=== PATIENT | male | born 1945 | race Caucasian/White ===

== ENCOUNTER 2020-08-28 01:36 | Inpatient (IN) | payer MEDICARE, OTHER ==
[2020-08-28 02:27] LABS: ABSOLUTE LYMPHOCYTES (AUTO) 0.9 10^3/uL (0.5-4.7); ABSOLUTE NEUT (AUTO) 11.3 10^3/uL (1.7-8.2); BASOPHILS % (AUTO) 0.2 % (0-2); HEMATOCRIT 38.3 % (37.9-51.0); HEMOGLOBIN 13.3 g/dL (13.5-17.0); LYMPHOCYTES % (AUTO) 6.8 % (13-45); MEAN CORPUSCULAR HEMOGLOBIN 33.3 pg (27.0-33.4); MEAN CORPUSCULAR HGB CONC 34.8 g/dL (32.0-36.0); MEAN CORPUSCULAR VOLUME 96 fl (80-97); MONOCYTES % (AUTO) 7.7 % (3-13); PLATELET COUNT 105 10^3/uL (150-450); RED CELL DISTRIBUTION WIDTH 14.3 % (11.5-14.0); SEGMENTED NEUTROPHILS % (AUTO) 85.3 % (42-78); TOTAL CELLS COUNTED % (AUTO) 100 %; WHITE BLOOD COUNT 13.3 10^3/uL (4.0-10.5)
[2020-08-28 02:47] LABS: ALBUMIN 3.5 g/dL (3.5-5.0); ALKALINE PHOSPHATASE 52 U/L (38-126); ANION GAP 12 (5-19); ASPARTATE AMINO TRANSFERASE 17 U/L (17-59); BILIRUBIN,DIRECT 0.1 mg/dL (0.0-0.4); BILIRUBIN,TOTAL 1.4 mg/dL (0.2-1.3); BLOOD UREA NITROGEN 35 mg/dL (7-20); CALCIUM 8.7 mg/dL (8.4-10.2); CARBON DIOXIDE 21 mmol/L (22-30); CHLORIDE 103 mmol/L (98-107); CREATINE KINASE 59 U/L (55-170); GLUCOSE 133 mg/dL (75-110); POTASSIUM 4.5 mmol/L (3.6-5.0); TOTAL PROTEIN 6.1 g/dL (6.3-8.2)
[2020-08-28 02:59] LABS: CREATINE KINASE MB 0.43 ng/mL (<4.55); NT PRO BNP 3630 pg/mL (<125)
[2020-08-28 03:02] LABS: TROPONIN I < 0.012 ng/mL
--- NOTE | 2020-08-28 03:46 | RADIOLOGY REPORT (SQ) ---
EXAM DESCRIPTION: XR CHEST 1 VIEW COMPLETED DATE/TME: 08/28/2020 01:56 CLINICAL HISTORY: 75 years Male, dyspnea COMPARISON: None. NUMBER OF VIEWS/TECHNIQUE: 1/AP FINDINGS: Adequate lung volume, moderate hazy opacity at the lower chest right cardiophrenic margin. mildly enlarged cardiac silhouette, and intact bony thorax. IMPRESSION: 1. Moderate hazy opacity of the right lower hemithorax/right cardiophrenic angle may indicate pneumonia/atelectasis, effusion, and/or cardiophrenic fat. Recommend CR/CT surveillance including at 7-12 weeks following initiation of any clinically warranted therapy. 2. Mild cardiac enlargement.
[2020-08-28] MEDS ORDERED: LEVOFLOXACIN 750 MG/D5W RTU 750 MG/150 ML RTUPB IV ONE (03:51)
[2020-08-28] MEDS ORDERED: NORMAL SALINE 1000 ML 1,000 ML IV ONE (03:54)
[2020-08-28] MEDS ORDERED: NORMAL SALINE IV ONE (03:57)
--- NOTE | 2020-08-28 03:58 | ER Document Report ---
ED General - General Stated Complaint: SHORTNESS OF BREATH Time Seen by Provider: 08/28/20 03:32 Primary Care Provider: MARIA E IBARRA JR, MD [Primary Care Provider] - Follow up as needed - HPI Context: This is a 75-year-old male with no history of prior visits to this emergency department presenting with a complaint of occasional shortness of breath, generalized weakness, and hematuria. Patient states he has felt unwell in gener al for the past 2 weeks. Patient states that his weakness seems to worsen today and he finally decided to be evaluated in the emergency department. Patient states he feels short of breath "sometimes" but does not seem to be able to elaborate as to whether or not it is associated with exertion, supine position, at rest, etc. Patient denies chest pain. Patient states that he has noticed that his urine is darker in color and that he is noticed some blood clots when he urinates. Patient states he also has some generalized weakness and fatigue. Patient denies for your pain: Take ibuprofen 600 mg and acetaminophen 1000 mg every 6 hours together as needed for pain. If this does not control your pain you may take 15 mg of oral morphine every 4 hours as needed. Please be very careful about using the oral morphine and only use this for severe pain.. Patient denies history of COVID-19 infection, no exposure to COVID-19 positive persons, known exposure to persons under investigation for Covid 19. Patient states that he is sleeping more than usual and that seems to help with his fatigue for short time. Patient states that any type of activity seems to exacerbate his fatigue. Associated symptoms: Other - See HPI - Related Data Allergies/Adverse Reactions: No Known Allergies Allergy (Unverified 08/28/20 04:22) Home Medications: Metoprolol. Lisinopril. Glipizide. Amlodipine. Aspirin. Hydrochlorothiazide Past Medical History - General Information source: Patient - Social History Smoking Status: Former Smoker Frequency of alcohol use: None Drug Abuse: None Family History: Reviewed & Not Pertinent - Past Medical History Cardiac Medical History: Reports: Hx Hypertension Pulmonary Medical History: Reports: Hx COPD Endocrine Medical History: Reports: Hx Diabetes Mellitus Type 2 Review of Systems - Review of Systems Constitutional: See HPI, Weakness EENT: No symptoms reported Cardiovascular: No symptoms reported Respiratory: Short of breath Gastrointestinal: No symptoms reported Genitourinary: Hematuria Male Genitourinary: No symptoms reported Musculoskeletal: No symptoms reported Skin: No symptoms reported Hematologic/Lymphatic: No symptoms reported Neurological/Psychological: Weakness -: Yes All other systems reviewed and negative Physical Exam - Vital signs Vitals: Resp Pulse Ox 21 H 94 08/28/20 01:38 08/28/20 01:38 - Notes Notes: CONSTITUTIONAL [Vital signs reviewed, Patient appears fatigued and pale, Alert and oriented X 3, patient does not appear to be in any acute distress.] HEAD [Atraumatic, Normocephalic.] EYES [Eyes are normal to inspection, No discharge from eyes, Extraocular muscles intact, Sclera are normal, Conjunctiva are normal.] ENT [External ears normal to inspection, Nose examination normal, Posterior pharynx normal, Mouth normal to inspection.] NECK [Normal ROM, No jugular venous distention, No meningeal signs, no carotid bruit.] RESPIRATORY CHEST [Chest is nontender, Breath sounds normal, No respiratory distress.] CARDIOVASCULAR [Irregular rhythm, No murmurs, Normal S1 S2, No rub, No gallop.] ABDOMEN [Abdomen is nontender, No pulsatile masses, No other masses, Bowel sounds normal, No distension, No peritoneal signs, No hernias.] BACK [There is no CVA Tenderness, There is no tenderness to palpation, Normal inspection.] UPPER EXTREMITY [Inspection normal, No cyanosis, No clubbing, No edema, ] LOWER EXTREMITY [Inspection normal, No cyanosis, No clubbing, No edema, NEURO [No focal motor deficits, No focal sensory deficits, Speech normal.] SKIN [Skin is warm, Skin is dry, Skin appears pale.] PSYCHIATRIC [Normal affect. ] Course - Re-evaluation Re-evalutation: 08/28/20 05:55 Results of ED MSE discussed with patient. Recommendation for admission discussed with patient. Patient is agreeable to this. All questions were answered. - Vital Signs Vital signs: Temp Pulse Resp BP Pulse Ox 99 F 94 18 103/54 L 97 08/28/20 05:00 08/28/20 02:02 08/28/20 05:09 08/28/20 05:09 08/28/20 05:09 - Laboratory Result Diagrams: 08/28/20 01:44 08/28/20 01:44 Laboratory results interpreted by me: 08/28/20 08/28/20 08/28/20 01:44 01:44 01:44 WBC 13.3 H RBC 4.00 L Hgb 13.3 L RDW 14.3 H Plt Count 105 L Lymph % (Auto) 6.8 L Absolute Neuts (auto) 11.3 H Seg Neutrophils % 85.3 H VBG HCO3 Sodium 135.9 L Carbon Dioxide 21 L BUN 35 H Creatinine 1.91 H Est GFR ( Amer) 42 L Est GFR (MDRD) Non-Af 35 L Glucose 133 H Total Bilirubin 1.4 H NT-Pro-B Natriuret Pep 3630 H Total Protein 6.1 L Urine Protein Urine Blood Urine Nitrite Ur Leukocyte Esterase 08/28/20 08/28/20 03:43 04:00 WBC RBC Hgb RDW Plt Count Lymph % (Auto) Absolute Neuts (auto) Seg Neutrophils % VBG HCO3 19.9 L Sodium Carbon Dioxide BUN Creatinine Est GFR ( Amer) Est GFR (MDRD) Non-Af Glucose Total Bilirubin NT-Pro-B Natriuret Pep Total Protein Urine Protein 100 H Urine Blood LARGE H Urine Nitrite POSITIVE H Ur Leukocyte Esterase LARGE H - Diagnostic Test Radiology reviewed: Reports reviewed - EKG Interpretation by Me Additional EKG results interpreted by me: 08/28/20 05:55 EKG obtained on 08/28/2020 at 0221 hrs. was interpreted by this MD. Findings: Irregularly irregular rhythm, appearance of which is consistent with atrial fibrillation, rate 95, left axis deviation is present, P waves are not visible, QRS complexes appear narrow, QTC is 448, there are no obvious patterns of ST segment elevation, depression, or reciprocal change present to suggest acute myocardial ischemia or infarction. There is no prior EKG available for comparison. Impression: Rate controlled atrial fibrillation with nonspecific ST segments. - Consults Dr. López Time consulted: 05:21 Reason for consultation: 08/28/20 05:58 UTI, hypotension, leukocytosis, dehydration, renal insufficiency Consulted provider: will come to ER Critical Care Note - Critical Care Note Total time excluding time spent on procedures (mins): 90 - Management of systemic infection with hypotension Discharge - Discharge Clinical Impression: SIRS (systemic inflammatory response syndrome) UTI (urinary tract infection) Qualifiers: Urinary tract infection type: site unspecified Hematuria presence: with hematuria Qualified Code(s): N39.0 - Urinary tract infection, site not specified Hypotension Qualifiers: Hypotension type: unspecified hypotension type Qualified Code(s): I95.9 - Hypotension, unspecified Condition: Stable Disposition: ADMITTED INPATIENT Admitting Provider: HospitalistDr. López Unit Admitted: IMCU Referrals: MARIA E IBARRA JR, MD [Primary Care Provider] - Follow up as needed
[2020-08-28 04:20] LABS: INTERNATIONAL RATION (INR) 1.14; PROTHROMBIN TIME 14.8 SEC (11.4-15.4)
[2020-08-28 04:25] LABS: APPEARANCE,URINE CLOUDY; BILIRUBIN,URINE NEGATIVE (NEGATIVE); COLOR,URINE AMBER; GLUCOSE, URINE NEGATIVE (NEGATIVE); KETONES,URINE NEGATIVE (NEGATIVE); LEUKOCYTE ESTERASE,URINE LARGE (NEGATIVE); NITRITE,URINE POSITIVE (NEGATIVE); PROTEIN,URINE 100 mg/dL (NEGATIVE); URINE SPECIFIC GRAVITY 1.014; UROBILINOGEN,URINE NEGATIVE mg/dL (<2.0)
[2020-08-28 04:26] LABS: VENOUS BLOOD BASE EXCESS -4.7 mmol/L; VENOUS BLOOD HCO3 19.9 mmol/L (20-32); VENOUS BLOOD PCO2 35.4 mmHg (35-63); VENOUS BLOOD PH 7.37 (7.30-7.42)
[2020-08-28] MEDS ORDERED: ONDANSETRON HCL INJ/PF 4 MG/2 ML SDV IV PRN (05:59)
[2020-08-28] MEDS ORDERED: ACETAMINOPHEN 325 MG TABLET PO PRN (05:59)
[2020-08-28] MEDS ORDERED: DEXTROSE 50%-WATER 25 GM/50 ML DISP.SYRIN IV PRN ×2 (06:12)
[2020-08-28] MEDS ORDERED: GLUCAGON,HUMAN RECOMB 1 MG INJ IM PRN (06:12)
[2020-08-28] MEDS ORDERED: DEXTROSE 40% GEL 15 GM TUBE PO PRN ×2 (06:12)
--- NOTE | 2020-08-28 06:25 | PDOC H&P ---
History of Present Illness Admission Date/PCP: MARIA E IBARRA JR, MD Patient complains of: Generalized weakness, blood in urine History of Present Illness: MANUEL QUINN is a 75 year old male with a history of hypertension and diabetes who presents to the ER stating that he has been feeling bad for the past 1 week. He states that he has been having generalized weakness, and has been easily fatigued. He also reports that he has been having hematuria, increased fr equency of urination and dysuria. And also endorses shortness of breath with exertion and mild sporadic cough which is nonproductive. He has been having rhinorrhea but denies history of fever, chills, chest pain, dizziness, nausea, vomiting or diarrhea. Has no orthopnea, PND or leg swelling. He also denied any recent sick contact history. Past Medical History Cardiac Medical History: Reports: Hypertension Pulmonary Medical History: Reports: Chronic Obstructive Pulmonary Disease (COPD) Endocrine Medical History: Reports: Diabetes Mellitus Type 2 Social History Information Source: Patient Lives with: Family Smoking Status: Former Smoker Frequency of Alcohol Use: None - Advance Directive Resuscitation Status: Full Code Family History Family History: Reviewed & Not Pertinent Parental Family History Reviewed: Yes Children Family History Reviewed: Yes Sibling(s) Family History Reviewed.: Yes Medication/Allergy Home Medications: Amlodipine Besylate [Norvasc 5 mg Tablet] 5 mg PO DAILY 08/28/20 Fluticasone Propionate [Flonase Nasal [place] 50 Mcg/[place]accoon 16 gm] 2 spray NAREB DAILYP PRN 08/28/20 Glipizide [Glocotrol 5 Mg Tablet] 5 mg PO BID 08/28/20 Hydrochlorothiazide [Hydrodiuril 12.5 mg Tablet] 12.5 mg PO QAM 08/28/20 Lisinopril [Prinivil 5 mg Tablet] 5 mg PO DAILY 08/28/20 Pioglitazone HCl 45 mg PO DAILY 08/28/20 Allergies/Adverse Reactions: No Known Allergies Allergy (Unverified 08/28/20 04:22) Review of Systems Constitutional: PRESENT: as per HPI Eyes: ABSENT: visual disturbances Ears: ABSENT: hearing changes Nose, Mouth, and Throat: ABSENT: as per HPI, headache(s), mouth pain, sore throat, vertigo, other Cardiovascular: PRESENT: as per HPI Respiratory: PRESENT: as per HPI Gastrointestinal: ABSENT: abdominal pain, constipation, diarrhea, hematemesis, hematochezia, nausea, vomiting Genitourinary: PRESENT: as per HPI Musculoskeletal: ABSENT: joint swelling Integumentary: ABSENT: rash, wounds Neurological: ABSENT: abnormal gait, abnormal speech, confusion, dizziness, focal weakness, syncope Psychiatric: ABSENT: anxiety, depression, homidical ideation, suicidal ideation Endocrine: ABSENT: cold intolerance, heat intolerance, polydipsia, polyuria Hematologic/Lymphatic: ABSENT: easy bleeding, easy bruising Physical Exam Vital Signs: Temp Pulse Resp BP Pulse Ox 99 F 94 31 H 109/56 L 91 L 08/28/20 05:00 08/28/20 02:02 08/28/20 06:01 08/28/20 06:00 08/28/20 06:01 Intake & Output 08/26/20 08/27/20 08/28/20 06:59 06:59 06:59 Intake Total 1150 Balance 1150 Weight 83.461 kg Additional comments: GENERAL APPEARANCE: Alert and oriented x3, no acute distress, on intranasal oxygen HEENT: Normocephalic and atraumatic. No scleral icterus. Dry oral mucosa NECK: Supple. No lymphadenopathy or tenderness. No carotid bruit. No JVD CHEST: Symmetric. Nontender to palpation. LUNGS: Good air entry bilaterally. No wheezing or crackles appreciated HEART: Regular rate and rhythm with normal S1 and S2. No murmurs, gallops, or rubs. ABDOMEN: Flat, soft, active bowel sounds, no direct or rebound tenderness. No organomegaly detected. No CVA tenderness EXTREMITIES: No cyanosis, clubbing, or edema. MUSCULOSKELETAL: No deformity, atrophy or swelling noted PSYCHIATRIC: Recent and remote memory is intact. Appropriate mood and affect. SKIN: Warm, dry, and well perfused. No lesions or rashes are noted. NEUROLOGIC: No focal sensory or motor deficits are noted. Results Laboratory Results: 08/28/20 01:44 08/28/20 01:44 08/28/20 08/28/20 08/28/20 01:44 01:44 03:43 WBC 13.3 H RBC 4.00 L Hgb 13.3 L Hct 38.3 MCV 96 MCH 33.3 MCHC 34.8 RDW 14.3 H Plt Count 105 L Seg Neutrophils % 85.3 H VBG pH VBG pCO2 VBG HCO3 VBG Base Excess Sodium 135.9 L Potassium 4.5 Chloride 103 Carbon Dioxide 21 L Anion Gap 12 BUN 35 H Creatinine 1.91 H Est GFR ( Amer) 42 L Glucose 133 H Lactic Acid Calcium 8.7 Total Bilirubin 1.4 H AST 17 Alkaline Phosphatase 52 Total Protein 6.1 L Albumin 3.5 Urine Color [place] Urine Appearance CLOUDY Urine pH 5.0 Ur Specific [place] 1.014 Urine Protein 100 H Urine Glucose (UA) NEGATIVE Urine Ketones NEGATIVE Urine Blood LARGE H Urine Nitrite POSITIVE H Ur Leukocyte Esterase LARGE H Urine WBC (Auto) >182 Urine RBC (Auto) >182 08/28/20 08/28/20 04:00 04:00 WBC RBC Hgb Hct MCV MCH MCHC RDW Plt Count Seg Neutrophils % VBG pH 7.37 VBG pCO2 35.4 VBG HCO3 19.9 L VBG Base Excess -4.7 Sodium Potassium Chloride Carbon Dioxide Anion Gap BUN Creatinine Est GFR ( Amer) Glucose Lactic Acid 1.2 Calcium Total Bilirubin AST Alkaline Phosphatase Total Protein Albumin Urine Color Urine Appearance Urine pH Ur Specific [place] Urine Protein Urine Glucose (UA) Urine Ketones Urine Blood Urine Nitrite Ur Leukocyte Esterase Urine WBC (Auto) Urine RBC (Auto) 08/28/20 08/28/20 01:44 01:44 Creatine Kinase 59 CK-MB (CK-2) 0.43 Troponin I < 0.012 NT-Pro-B Natriuret Pep 3630 H Impressions: Chest X-Ray 08/28/20 01:56 IMPRESSION: 1. Moderate hazy opacity of the right lower hemithorax/right cardiophrenic angle may indicate pneumonia/atelectasis, effusion, and/or cardiophrenic fat. Recommend CR/CT surveillance including at 7-12 weeks following initiation of any clinically warranted therapy. 2. Mild cardiac enlargement. Assessment and Plan - Diagnosis (1) Sepsis Is this a current diagnosis for this admission?: Yes Plan: Patient meets sepsis criteria Likely source: UTI Has been given 2 L of normal saline ER Continue hydration continue Levaquin Follow-up with blood and urine culture (2) Acute respiratory failure with hypoxia Is this a current diagnosis for this admission?: Yes Plan: Patient reports shortness of breath for the past 3 to 4 days with exertion Has no known history of COPD or heart failure Oxygen saturation was around 86% on arrival Currently saturating well on 2 L intranasal oxygen Chest x-ray shows moderate hazy opacity on the right lower lobe Screened for Covid at the ED Continue Levaquin Continue supportive care and monitor vitals closely (3) Right lower lobe pneumonia Is this a current diagnosis for this admission?: Yes Plan: Patient has been having dry cough and shortness of breath Chest x-ray shows right lower lobe hazy opacity likely pneumonia vs atelectasis Continue IV Levaquin Closely monitor vitals Follow-up with blood culture (4) Acute kidney injury Is this a current diagnosis for this admission?: Yes Plan: BUN/creatinine was 35/1.9 No baseline to compare with Likely prerenal from poor oral intake Has been hydrated with 2 L at the ER Continue IV hydration Monitor renal indicis Renally dose medications (5) Suspected COVID-19 virus infection Is this a current diagnosis for this admission?: Yes Plan: Presents with symptoms suspicious for COVID-19 Follow-up with test results Under special airborne isolation Continue supportive measures (6) UTI (urinary tract infection) Qualifiers: Urinary tract infection type: site unspecified Hematuria presence: with hematuria Qualified Code(s): N39.0 - Urinary tract infection, site not specified; R31.9 - Hematuria, unspecified Is this a current diagnosis for this admission?: Yes Plan: UA suggestive of UTI Continue Levaquin Follow-up with urine culture (7) Diabetes mellitus Qualifiers: Diabetes mellitus type: type 2 Is this a current diagnosis for this admission?: Yes Plan: Patient takes glipizide at home Started him on sliding scale insulin with Accu-Chek and hypoglycemia protocol (8) Hypertension Is this a current diagnosis for this admission?: Yes Plan: Patient currently on multiple antihypertensive medications including amlodipine, lisinopril, hydrochlorothiazide and metoprolol Likely contributing to low blood pressure present on presentation We will hold antihypertensive medication for now - Time Time Spent with patient: 35 or more minutes Total Critical Time (Minutes): 45 Medications reviewed and adjusted accordingly: Yes Anticipated Discharge Disposition: Home, Self Care Anticipated Discharge Timeframe: within 72 hours - Inpatient Certification Based on my medical assessment, after consideration of the patient's comorbidities, presenting symptoms, or acuity I expect that the services needed warrant INPATIENT care.: Yes I certify that my determination is in accordance with my understanding of Medicare's requirements for reasonable and necessary INPATIENT services [42 CFR 412.3e].: Yes Medical Necessity: Significant Comorbidiites Make Outpatient Treatment Too Risky, Need Close Monitoring Due to Risk of Patient Decompensation, Need for IV Antibiotics, Risk of Complication if Not Cared For in Hospital Post Hospital Care: D/C or Transfer Summary
[2020-08-28] MEDS: HEPARIN SOD (PORCINE) 5,000 UNIT/ML 1 ML VIAL SUBCUT SCH ×3 (06:45→22:05)
--- NOTE | 2020-08-28 07:51 | EKG REPORT ---
SEVERITY:- ABNORMAL ECG - ATRIAL FIBRILLATION, V-RATE 78-115 LEFT AXIS DEVIATION NONSPECIFIC T ABNORMALITIES, INFERIOR LEADS : Confirmed by: Rip Waldron 28-Aug-2020 07:50:35
[2020-08-28] MEDS: INSULIN REG, HUMAN 100 UNIT/ML 3 ML VIAL (PYX) SUBCUT SCH ×4 (09:39→22:06)
[2020-08-28] MEDS: FAMOTIDINE 20 MG TABLET PO SCH ×2 (09:42→22:05)
[2020-08-28] MEDS: NORMAL SALINE 1000 ML 1,000 ML IV PRN (14:10)
--- NOTE | 2020-08-28 15:38 | Progress Note ---
Provider Note Provider Note: The patient is a 75-year-old male with a past medical history of hypertension, COPD (not home O2 dependent, and DM 2 who was admitted early this morning by the rn recruitment for Sepsis secondary to right lower lobe pneumonia and urinary tract infection. The patient was briefly seen on morning rounds. He is found resting in bed, comfortably, on supplemental oxygen via nasal cannula. He was sleeping but woke easily when I said his name. He complains of continued generalized malaise and fatigue. Patient did have a fever of 100.4 this am. Vital signs, nursing notes, laboratory results, imaging, H&P, and orders as established by the previous provider. In addition: Have resumed the patient's home medications with the exception of his oral anti- diabetic agents. Have ordered follow-up CT Chest imagining as was recommended by the radiologist. Encouraged pulmonary toilet with IS, Flutter valve, and OOB activities. Discussed patient's likely HH needs with discharge planning.
--- NOTE | 2020-08-28 18:55 | RADIOLOGY REPORT (SQ) ---
EXAM DESCRIPTION: CT CHEST WITHOUT IMAGES COMPLETED DATE/TIME: 08/28/2020 6:36 pm REASON FOR STUDY: fever, Dsypnea, hypoxia COMPARISON: None. TECHNIQUE: CT scan performed of the chest without intravenous contrast. Images reviewed with lung, soft tissue and bone windows. Reconstructed coronal and sagittal MPR images reviewed. All images st ored on PACS. All CT scanners at this facility use dose modulation, iterative reconstruction, and/or weight based d osing when appropriate to reduce radiation dose to as low as reasonably achievable (ALARA). [facility]: Dose Right [facility]: CareDose [facility]: Dose Right [facility]: Teradose 4D [facility]: [employer] RADIATION DOSE: CT Rad equipment meets quality standard of care and radiation dose reduction techniq ues were employed. CTDIvol: 14.2 mGy. DLP: 581 mGy-cm. mGy. LIMITATIONS: No technical limitations. FINDINGS: LUNGS AND PLEURA: There are some small apical blebs on the right. There is no pulmonary i nfiltrate or pleural effusion. No mass. HILAR AND MEDIASTINAL STRUCTURES: No identified masses or abnormal nodes. No obvious aneurysm. HEART AND VASCULAR STRUCTURES: No aneurysm. No pericardial effusion. Coronary artery calcifications are present. UPPER ABDOMEN: 27.6 mm right adrenal mass. THYROID AND OTHER SOFT TISSUES: No masses. No adenopathy. BONES: No significant finding. HARDWARE: None in the chest. OTHER: No other significant findings. IMPRESSION: 1. Mild emphysematous changes on the right. No acute cardiopulmonary findings. 2. 27.6 mm right adrenal mass. Consider MRI with adrenal protocol. TECHNICAL DOCUMENTATION: JOB ID: [id number] Quality ID # [id number]: Final reports with documentation of one or more dose reduction techniques (e.g., Au tomated exposure control, adjustment of the mA and/or kV according to patient size, use of iterative reconstruction technique) 2010 [employer]- All Rights Reserved Reading location - IP/workstation name: [email or web address]
[2020-08-29 05:55] LABS: ABSOLUTE LYMPHOCYTES (AUTO) 1.3 10^3/uL (0.5-4.7); ABSOLUTE MONOCYTES (AUTO) 1.1 10^3/uL (0.1-1.4); ABSOLUTE NEUT (AUTO) 9.6 10^3/uL (1.7-8.2); BASOPHILS % (AUTO) 0.2 % (0-2); EOSINOPHILS % (AUTO) 0.1 % (0-6); HEMATOCRIT 35.9 % (37.9-51.0); HEMOGLOBIN 12.3 g/dL (13.5-17.0); LYMPHOCYTES % (AUTO) 11.1 % (13-45); MEAN CORPUSCULAR HEMOGLOBIN 33.3 pg (27.0-33.4); MEAN CORPUSCULAR HGB CONC 34.4 g/dL (32.0-36.0); MEAN CORPUSCULAR VOLUME 97 fl (80-97); MONOCYTES % (AUTO) 8.9 % (3-13); RED BLOOD COUNT 3.71 10^6/uL (4.35-5.55); RED CELL DISTRIBUTION WIDTH 14.4 % (11.5-14.0); SEGMENTED NEUTROPHILS % (AUTO) 79.7 % (42-78); TOTAL CELLS COUNTED % (AUTO) 100 %; WHITE BLOOD COUNT 12.1 10^3/uL (4.0-10.5)
[2020-08-29 05:58] LABS: ANION GAP 9 (5-19); BLOOD UREA NITROGEN 13 mg/dL (7-20); CALCIUM 8.5 mg/dL (8.4-10.2); CARBON DIOXIDE 28 mmol/L (22-30); CHLORIDE 103 mmol/L (98-107); GLUCOSE 106 mg/dL (75-110)
[2020-08-29 05:59] LABS: PLATELET COUNT 72 10^3/uL (150-450)
[2020-08-29] MEDS: HEPARIN SOD (PORCINE) 5,000 UNIT/ML 1 ML VIAL SUBCUT SCH (06:46)
[2020-08-29] MEDS: NORMAL SALINE 1000 ML 1,000 ML IV PRN (06:47)
[2020-08-29] MEDS ORDERED: HYDROCHLOROTHIAZIDE 12.5 MG TABLET PO SCH (08:00)
[2020-08-29] MEDS ORDERED: DEXTROSE 50%-WATER 25 GM/50 ML DISP.SYRIN IV PRN ×2 (08:32)
[2020-08-29] MEDS ORDERED: DEXTROSE 40% GEL 15 GM TUBE PO PRN ×2 (08:32)
[2020-08-29] MEDS ORDERED: GLUCAGON,HUMAN RECOMB 1 MG INJ IM PRN (08:32)
[2020-08-29] MEDS ORDERED: DEXTROSE 50%-WATER 25 GM/50 ML DISP.SYRIN IV ONE (08:38)
[2020-08-29] MEDS: LISINOPRIL 5 MG TABLET PO SCH (09:22)
[2020-08-29] MEDS: FAMOTIDINE 20 MG TABLET PO SCH ×2 (09:23→21:45)
[2020-08-29] MEDS: AMLODIPINE BESYLATE 5 MG TABLET PO SCH (09:23)
[2020-08-29] MEDS: FLUTICASONE NASAL SPRAY 50 MCG/SPRY 120 SPRAY/16 GM NAREB SCH (09:23)
[2020-08-29] MEDS: DEXTROSE 5%-NORMAL SALINE 1,000 ML IV PRN (10:43)
[2020-08-29 11:01] LABS: APPEARANCE,URINE CLEAR; BILIRUBIN,URINE NEGATIVE (NEGATIVE); COLOR,URINE YELLOW; GLUCOSE, URINE >=500 mg/dL (NEGATIVE); KETONES,URINE NEGATIVE (NEGATIVE); PROTEIN,URINE NEGATIVE (NEGATIVE); URINE SPECIFIC GRAVITY 1.012; UROBILINOGEN,URINE NEGATIVE mg/dL (<2.0)
[2020-08-29] MEDS: INSULIN LISPRO 100 UNIT/ML 3 ML VIAL SUBCUT SCH ×2 (12:20→17:04)
[2020-08-29] MEDS: INSULIN REG, HUMAN 100 UNIT/ML 3 ML VIAL (PYX) SUBCUT SCH (13:03)
--- NOTE | 2020-08-29 13:59 | PDOC PROGRESS REPORT ---
Subjective Date:: 08/29/20 Subjective:: As per admitting physician's note MANUEL QUINN is a 75 year old male with a history of hypertension and diabetes who presents to the ER stating that he has been feeling bad for the past 1 week. He states that he has been having generalized weakness, and has been easily fatigued. He also reports that he has been having hematuria, increased frequency of urination and dysuria. And also endorses shortness of breath with exertion and mild sporadic cough which is nonproductive. He has been having rhinorrhea but denies history of fever, chills, chest pain, dizziness, nausea, vomiting or diarrhea. Has no orthopnea, PND or leg swelling. He also denied any recent sick contact history. 08/29/2020. No acute events overnight. Patient is stating that prior to admission he was noting blood clots in his urine which has resolved since admission, denies any dysuria, urgency or hesitancy. Denies any fever, chills, nausea, vomiting. Reason For Visit: SEPSIS,URINARY TRACT INFECTION Physical Exam Vital Signs: Temp Pulse Resp BP Pulse Ox 98.0 F 83 18 94/40 L 99 08/29/20 11:05 08/29/20 11:05 08/29/20 11:05 08/29/20 11:05 08/29/20 11:05 Intake & Output 08/28/20 08/29/20 08/30/20 06:59 06:59 06:59 Intake Total 1150 1575 590 Output Total 1225 Balance 1150 350 590 Weight 83.461 kg 87.4 kg General appearance: PRESENT: no acute distress, obese, well-developed, well- nourished Head exam: PRESENT: atraumatic, normocephalic Respiratory exam: PRESENT: clear to auscultation kehinde. ABSENT: rales, rhonchi, wheezes Cardiovascular exam: PRESENT: RRR. ABSENT: diastolic murmur, rubs, systolic murmur GI/Abdominal exam: PRESENT: normal bowel sounds, soft. ABSENT: distended, guarding, mass, organolmegaly, rebound, tenderness Neurological exam: PRESENT: alert, awake, oriented to person, oriented to place, oriented to time, oriented to situation, CN II-XII grossly intact. ABSENT: motor sensory deficit Skin exam: PRESENT: dry, intact, warm. ABSENT: cyanosis, rash Results Laboratory Results: 08/29/20 04:57 08/29/20 04:57 08/29/20 08/29/20 08/29/20 04:57 04:57 10:26 WBC 12.1 H RBC 3.71 L Hgb 12.3 L Hct 35.9 L MCV 97 MCH 33.3 MCHC 34.4 RDW 14.4 H Plt Count 72 L Seg Neutrophils % 79.7 H Sodium 139.6 Potassium 4.0 Chloride 103 Carbon Dioxide 28 Anion Gap 9 BUN 13 Creatinine 1.07 Est GFR ( Amer) > 60 Glucose 106 Calcium 8.5 Urine Color YELLOW Urine Appearance CLEAR Urine pH 5.0 Ur Specific [place] 1.012 Urine Protein NEGATIVE Urine Glucose (UA) >=500 H Urine Ketones NEGATIVE Urine Blood SMALL H Urine RBC (Auto) 2 08/28/20 08/28/20 01:44 01:44 Creatine Kinase 59 CK-MB (CK-2) 0.43 Troponin I < 0.012 NT-Pro-B Natriuret Pep 3630 H Impressions: Chest CT 08/28/20 00:00 IMPRESSION: 1. Mild emphysematous changes on the right. No acute cardiopulmonary findings. 2. 27.6 mm right adrenal mass. Consider MRI with adrenal protocol. Chest X-Ray 08/28/20 01:56 IMPRESSION: 1. Moderate hazy opacity of the right lower hemithorax/right cardiophrenic angle may indicate pneumonia/atelectasis, effusion, and/or cardiophrenic fat. Recommend CR/CT surveillance including at 7-12 weeks following initiation of any clinically warranted therapy. 2. Mild cardiac enlargement. Assessment and Plan - Diagnosis (1) Acute respiratory failure with hypoxia Is this a current diagnosis for this admission?: Yes Plan: Much improved. SPO2 WNL on 1 L nasal cannula. Patient presented with dyspnea on exertion 3 to 4 days at admission. Likely community-acquired pneumonia including Streptococcus pneumonia. Denies any history of known history of COPD or heart failure Chest x-ray shows moderate hazy opacity on the right lower lobe COVID-19 serology negative. Day 2 IV antibiotics. Day 2 IV levofloxacin. Continue empiric IV antibiotics, DuoNeb, as needed BiPAP, supplemental oxygen, follow-up sputum and blood culture. (2) Acute kidney injury Is this a current diagnosis for this admission?: Yes Plan: Resolved. Presented with BUN/creatinine was 35/1.9 Likely prerenal from poor oral intake Continue cautious volume resuscitation guided by volume status. Monitor electrolytes and volume status, replace electrolytes as needed. Avoid nephrotoxic meds. (3) Diabetes mellitus Qualifiers: Diabetes mellitus type: type 2 Is this a current diagnosis for this admission?: Yes Plan: Patient noted to be hypoglycemic. Home medications are pioglitazone and glipizide. Hemoglobin A1c 6.0%. Not sure if patient's hypoglycemia was induced by oral antihypoglycemics in the setting of [place]. Hold oral hypoglycemic. Accu-Chek, hypoglycemia protocol, sliding scale insulin. (4) Hypertension Is this a current diagnosis for this admission?: Yes Plan: Presented with soft BPs. Asymptomatic. Review of home medication shows that patient is on multiple antihypertensive medications including amlodipine, lisinopril, hydrochlorothiazide and metoprolol likely contributing to low blood pressure present on presentation. Monitor vitals. Hold antihypertensives, resume once appropriate. Outpatient PCP follow-up. (5) Right lower lobe pneumonia Is this a current diagnosis for this admission?: Yes Plan: Plan as per #1. (6) Sepsis Is this a current diagnosis for this admission?: Yes Plan: Resolved. As per admissions note patient met sepsis criteria Likely source: UTI and community-acquired pneumonia. (7) Suspected COVID-19 virus infection Is this a current diagnosis for this admission?: Yes Plan: COVID-19 serology negative. (8) UTI (urinary tract infection) Qualifiers: Urinary tract infection type: site unspecified Hematuria presence: with hematuria Qualified Code(s): N39.0 - Urinary tract infection, site not specified; R31.9 - Hematuria, unspecified Is this a current diagnosis for this admission?: Yes Plan: Likely due to gram-negative rods including E. coli. Presented with hematuria. Denies any history of recurrent UTI, urogenital instrumentation, nephrolithiasis. (9) Hematuria Qualifiers: Hematuria type: unspecified type Qualified Code(s): R31.9 - Hematuria, unspecified Is this a current diagnosis for this admission?: Yes Plan: Moderate improvement. Patient reported seeing blood clots while urinating. UA positive for moderate hematuria. Repeat UA moderate resolution. Denies any history of nephrolithiasis, trauma or any urogenital malignancy. Likely due to acute UTI. Treat underlying UTI. Will obtain renal and bladder ultrasound to rule out any urogenital malignancy. Monitor H&H. Repeat UA tomorrow. Follow-up renal and bladder ultrasound. (10) Thrombocytopenia Is this a current diagnosis for this admission?: Yes Plan: Patient presented with hematuria and also complaining of easy bruising of upper extremities. Denies any history of malignancy, rashes, nosebleed, hematemesis, hemoptysis, melena or hematochezia. Denies any exposure to heparin weights. 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 Consult oncology for further recommendations. - Time Time Spent with patient: 35 or more minutes Smoking Cessation Education: 3 to 10 minutes Anticipated Discharge Disposition: Home, Self Care Anticipated Discharge Timeframe: within 48 hours
[2020-08-30] MEDS: INSULIN LISPRO 100 UNIT/ML 3 ML VIAL SUBCUT SCH ×4 (00:02→18:12)
[2020-08-30] MEDS: DEXTROSE 5%-NORMAL SALINE 1,000 ML IV PRN (00:14)
--- NOTE | 2020-08-30 01:45 | RADIOLOGY REPORT (SQ) ---
RENAL ULTRASOUND: 08/30/2020 12:42 AM [facility] HISTORY: 75-year old with hematuria. COMPARISON: None available TECHNIQUE: Limited sonographic evaluation of the kidneys was performed. FINDINGS: Both kidneys demonstrate normal cortical echogenicity. The right kidney measures up to 11.1 cm in length. The left kidney measures up to 11.0 cm in length. No hydronephrosis is noted in either kidney. No free intraperitoneal fluid is seen. There is a slightly hypoechoic area within the dependent portion of the urinary bladder measuring up to 1.9 x 1.8 x 1.3 cm. This may represent portions of the prostate gland, less likely hemorrhage or a mass. The abdominal aorta and inferior vena cava are not well visualized. IMPRESSION: There is no evidence of hydronephrosis. There is a slightly hypoechoic area within the urinary bladder which may represent portions of the prostate gland, less likely a mass or hemorrhage. This can be followed with subsequent ultrasound imaging.
[2020-08-30] MEDS ORDERED: LEVOFLOXACIN 750 MG/D5W RTU 750 MG/150 ML RTUPB IV SCH (06:00)
[2020-08-30 06:56] LABS: HEMATOCRIT 36.1 % (37.9-51.0); HEMOGLOBIN 12.4 g/dL (13.5-17.0); MEAN CORPUSCULAR HGB CONC 34.3 g/dL (32.0-36.0); MEAN CORPUSCULAR VOLUME 96 fl (80-97); RED BLOOD COUNT 3.75 10^6/uL (4.35-5.55); RED CELL DISTRIBUTION WIDTH 14.7 % (11.5-14.0)
[2020-08-30 07:10] LABS: ALKALINE PHOSPHATASE 51 U/L (38-126); ANION GAP 7 (5-19); ASPARTATE AMINO TRANSFERASE 22 U/L (17-59); BILIRUBIN,DIRECT 0.1 mg/dL (0.0-0.4); BILIRUBIN,TOTAL 0.8 mg/dL (0.2-1.3); BLOOD UREA NITROGEN 23 mg/dL (7-20); CALCIUM 8.7 mg/dL (8.4-10.2); CARBON DIOXIDE 22 mmol/L (22-30); CHLORIDE 106 mmol/L (98-107); GLUCOSE 146 mg/dL (75-110); POTASSIUM 4.7 mmol/L (3.6-5.0); TOTAL PROTEIN 5.5 g/dL (6.3-8.2)
[2020-08-30 07:39] LABS: PLATELET COUNT 77 10^3/uL (150-450)
--- NOTE | 2020-08-30 08:20 | PDOC CONSULTATION ---
Consultation Consult Date: 08/30/20 Attending physician:: JED TEMPLE Provider Consulted: BYRON BOO Consult reason:: Patient with right adrenal lesion, thrombocytopenia History of Present Illness Admission Date/PCP: 08/28/20 14:24 MARIA E IBARRA JR, MD Patient complains of: Weakness, hematuria History of Present Illness: MANUEL QUINN is a 75 year old male who presents with 2 to 3 weeks of weakness as well as hematuria though does not remember how long. He presented to the ED. Upon presentation he was ruled out for Covid, and has been treated for pneumonia/UTI/sepsis. Original CT chest was done, for consideration of pneumonia, there was concern of opacity, but also right adrenal lesion 2 to 3 cm. He has been treated with IV antibiotics and feels much better, the hematuria is cleared. He denies any weight loss or other symptomatology other than what recently happened. Renal ultrasound was done because there was some concern of a bladder lesion as well on imaging, and this did indicate something possibly in the bladder. In addition platelet count has been low. Today at 77. Of note, prior to quitting about 30 years ago he did have 20 to 25 years of heavy alcohol abuse. Past Medical History Cardiac Medical History: Reports: Hypertension Pulmonary Medical History: Reports: Chronic Obstructive Pulmonary Disease (COPD) Endocrine Medical History: Reports: Diabetes Mellitus Type 2 Psychiatric Medical History: Denies: Depression Past Surgical History Past Surgical History: Reports: None Social History Lives with: Family Smoking Status: Former Smoker Cigarettes Packs Per Day: 1 Number of Years Smokin Frequency of Alcohol Use: None Drugs: None Past Social History Note: Previous history of heavy alcohol abuse, quit 30 years ago, 25 years of abuse prior to that. - Advance Directive Resuscitation Status: Full Code Family History Family History: Reviewed & Not Pertinent Parental Family History Reviewed: Yes Children Family History Reviewed: Yes Sibling(s) Family History Reviewed.: Yes Medication/Allergy Home Medications: Amlodipine Besylate [Norvasc 5 mg Tablet] 5 mg PO DAILY 08/28/20 Fluticasone Propionate [Flonase Nasal [place] 50 Mcg/[place] 16 gm] 2 spray NAREB DAILYP PRN 08/28/20 Glipizide [Glocotrol 5 Mg Tablet] 5 mg PO BID 08/28/20 Hydrochlorothiazide [Hydrodiuril 12.5 mg Tablet] 12.5 mg PO QAM 08/28/20 Lisinopril [Prinivil 5 mg Tablet] 5 mg PO DAILY 08/28/20 Pioglitazone HCl 45 mg PO DAILY 08/28/20 Allergies/Adverse Reactions: No Known Allergies Allergy (Unverified 08/28/20 04:22) Review of Systems Constitutional: ABSENT: chills, fever(s), headache(s), weight gain, weight loss Eyes: ABSENT: visual disturbances Ears: ABSENT: hearing changes Cardiovascular: ABSENT: chest pain, dyspnea on exertion, edema, orthropnea, palpitations Respiratory: ABSENT: cough, hemoptysis Gastrointestinal: ABSENT: abdominal pain, constipation, diarrhea, hematemesis, hematochezia, nausea, vomiting Genitourinary: ABSENT: dysuria, hematuria Musculoskeletal: ABSENT: joint swelling Integumentary: ABSENT: rash, wounds Neurological: ABSENT: abnormal gait, abnormal speech, confusion, dizziness, focal weakness, syncope Psychiatric: ABSENT: anxiety, depression, homidical ideation, suicidal ideation Endocrine: ABSENT: cold intolerance, heat intolerance, polydipsia, polyuria Hematologic/Lymphatic: ABSENT: easy bleeding, easy bruising Physical Exam Vital Signs: Temp Pulse Resp BP Pulse Ox 98.1 F 91 17 132/80 H 96 08/30/20 07:56 08/30/20 07:56 08/30/20 07:56 08/30/20 07:56 08/30/20 07:56 Intake & Output 08/29/20 08/30/20 08/31/20 06:59 06:59 06:59 Intake Total 1575 2067 Output Total 1225 1175 Balance 350 892 Weight 87.4 kg 87.4 kg General appearance: PRESENT: no acute distress, well-developed, well-nourished Head exam: PRESENT: atraumatic, normocephalic Eye exam: PRESENT: conjunctiva pink, EOMI, PERRLA. ABSENT: scleral icterus Ear exam: PRESENT: normal external ear exam Mouth exam: PRESENT: moist, tongue midline Neck exam: ABSENT: carotid bruit, JVD, lymphadenopathy, thyromegaly Respiratory exam: PRESENT: clear to auscultation kehinde. ABSENT: rales, rhonchi, wheezes Cardiovascular exam: PRESENT: RRR. ABSENT: diastolic murmur, rubs, systolic murmur Pulses: PRESENT: normal dorsalis pedis pul Vascular exam: PRESENT: normal capillary refill GI/Abdominal exam: PRESENT: normal bowel sounds, soft. ABSENT: distended, guarding, mass, organolmegaly, rebound, tenderness Rectal exam: PRESENT: deferred Extremities exam: PRESENT: full ROM. ABSENT: calf tenderness, clubbing, pedal edema Neurological exam: PRESENT: alert, awake, oriented to person, oriented to place, oriented to time, oriented to situation, CN II-XII grossly intact. ABSENT: motor sensory deficit Psychiatric exam: PRESENT: appropriate affect, normal mood. ABSENT: homicidal ideation, suicidal ideation Skin exam: PRESENT: dry, intact, warm. ABSENT: cyanosis, rash Results Laboratory Results: 08/30/20 05:26 08/30/20 05:26 08/29/20 08/30/20 08/30/20 10:26 05:26 05:26 WBC 9.0 RBC 3.75 L Hgb 12.4 L Hct 36.1 L MCV 96 MCH 33.0 MCHC 34.3 RDW 14.7 H Plt Count 77 L Sodium 135.0 L Potassium 4.7 Chloride 106 Carbon Dioxide 22 Anion Gap 7 BUN 23 H Creatinine 1.36 H Est GFR ( Amer) > 60 Glucose 146 H Calcium 8.7 Total Bilirubin 0.8 AST 22 Alkaline Phosphatase 51 Total Protein 5.5 L Albumin 3.0 L Urine Color YELLOW Urine Appearance CLEAR Urine pH 5.0 Ur Specific [place] 1.012 Urine Protein NEGATIVE Urine Glucose (UA) >=500 H Urine Ketones NEGATIVE Urine Blood SMALL H Urine RBC (Auto) 2 08/28/20 03:43 Clean Catch Midstream Urine Culture - Final Escherichia Coli 08/28/20 08/28/20 01:44 01:44 Creatine Kinase 59 CK-MB (CK-2) 0.43 Troponin I < 0.012 NT-Pro-B Natriuret Pep 3630 H Impressions: Chest CT 08/28/20 00:00 IMPRESSION: 1. Mild emphysematous changes on the right. No acute cardiopulmonary findings. 2. 27.6 mm right adrenal mass. Consider MRI with adrenal protocol. Chest X-Ray 08/28/20 01:56 IMPRESSION: 1. Moderate hazy opacity of the right lower hemithorax/right cardiophrenic angle may indicate pneumonia/atelectasis, effusion, and/or cardiophrenic fat. Recommend CR/CT surveillance including at 7-12 weeks following initiation of any clinically warranted therapy. 2. Mild cardiac enlargement. Renal Ultrasound 08/29/20 13:41 IMPRESSION: There is no evidence of hydronephrosis. There is a slightly hypoechoic area within the urinary bladder which may represent portions of the prostate gland, less likely a mass or hemorrhage. This can be followed with subsequent ultrasound imaging. Assessment & Plan - Diagnosis (1) Adrenal mass 1 cm to 4 cm in diameter Is this a current diagnosis for this admission?: Yes Plan: May be an adrenal adenoma, I do not see any other strong concern of malignancy although there was mild opacity in the lung, but this seems consistent with infection. We will plan for outpatient evaluation, and I will do further imaging as an outpatient once we are sure that the infection is cleared. Will probably see me in 4 to 6 weeks post discharge and we will take this forward. (2) Thrombocytopenia Is this a current diagnosis for this admission?: Yes Plan: I have sent a work-up for this, but likely to be mild DIC that may have resulted from inherent liver disease. Should improve as the infection improves. Will follow. (3) Anemia Qualifiers: Anemia type: unspecified type Qualified Code(s): D64.9 - Anemia, unspecified Is this a current diagnosis for this admission?: Yes Plan: Unknown cause, work-up pending. - Time Time Spent: Greater than 70 Minutes - Inpatient Certification Based on my medical assessment, after consideration of the patient's comorbidities, presenting symptoms, or acuity I expect that the services needed warrant INPATIENT care.: Yes I certify that my determination is in accordance with my understanding of Medicare's requirements for reasonable and necessary INPATIENT services [42 CFR 412.3e].: Yes Medical Necessity: Need for Nebulizer Therapy and Monitoring of Response, Need for IV Antibiotics, Risk of Complication if Not Cared For in Hospital
[2020-08-30] MEDS: FLUTICASONE NASAL SPRAY 50 MCG/SPRY 120 SPRAY/16 GM NAREB SCH (09:33)
[2020-08-30] MEDS: FAMOTIDINE 20 MG TABLET PO SCH ×2 (09:33→21:44)
[2020-08-30] MEDS: AMLODIPINE BESYLATE 5 MG TABLET PO SCH (09:35)
[2020-08-30] MEDS: LISINOPRIL 5 MG TABLET PO SCH (09:39)
[2020-08-30 10:17] LABS: FIBRINOGEN 643 mg/dL (209-497); INTERNATIONAL RATION (INR) 0.99; PROTHROMBIN TIME 13.3 SEC (11.4-15.4)
[2020-08-30 10:18] LABS: ABSOLUTE RETICS # 0.026 10^6/uL (0.028-0.122); RETICULOCYTE COUNT (AUTO) 0.69 % (0.66-2.85)
[2020-08-30 10:29] LABS: IRON(TIBC) 54.7 ug/dL (49-181)
--- NOTE | 2020-08-30 12:07 | PDOC PROGRESS REPORT ---
Subjective Date:: 08/30/20 Subjective:: As per admitting physician's note MANUEL QUINN is a 75 year old male with a history of hypertension and diabetes who presents to the ER stating that he has been feeling bad for the past 1 week. He states that he has been having generalized weakness, and has been easily fatigued. He also reports that he has been having hematuria, increased frequency of urination and dysuria. And also endorses shortness of breath with exertion and mild sporadic cough which is nonproductive. He has been having rhinorrhea but denies history of fever, chills, chest pain, dizziness, nausea, vomiting or diarrhea. Has no orthopnea, PND or leg swelling. He also denied any recent sick contact history. 08/29/2020. No acute events overnight. Patient is stating that prior to admission he was noting blood clots in his urine which has resolved since admission, denies any dysuria, urgency or hesitancy. Denies any fever, chills, nausea, vomiting. 08/30/2020. No acute events overnight. Hematuria has resolved, patient is denying any fever, chills, nausea, vomiting, new, constipation or any urinary symptoms. Oncology has been consulted, pending anemia work-up, platelets are stable, no sign of acute bleeding. Possible discharge home tomorrow. Reason For Visit: SEPSIS,URINARY TRACT INFECTION Physical Exam Vital Signs: Temp Pulse Resp BP Pulse Ox 98.1 F 91 17 132/80 H 96 08/30/20 07:56 08/30/20 07:56 08/30/20 07:56 08/30/20 07:56 08/30/20 07:56 Intake & Output 08/29/20 08/30/20 08/31/20 06:59 06:59 06:59 Intake Total 1575 2067 Output Total 1225 1175 Balance 350 892 Weight 87.4 kg 87.4 kg General appearance: PRESENT: no acute distress, obese, well-developed, well- nourished Neck exam: ABSENT: carotid bruit, JVD, lymphadenopathy, thyromegaly Respiratory exam: PRESENT: clear to auscultation kehinde. ABSENT: rales, rhonchi, wheezes Cardiovascular exam: PRESENT: RRR. ABSENT: diastolic murmur, rubs, systolic murmur GI/Abdominal exam: PRESENT: normal bowel sounds, soft. ABSENT: distended, guarding, mass, organolmegaly, rebound, tenderness Extremities exam: PRESENT: full ROM, other - Bilateral hand dorsal aspect ecchymosis. ABSENT: calf tenderness, clubbing, pedal edema Neurological exam: PRESENT: alert, awake, oriented to person, oriented to place, oriented to time, oriented to situation, CN II-XII grossly intact. ABSENT: motor sensory deficit Results Laboratory Results: 08/30/20 05:26 08/30/20 05:26 08/30/20 08/30/20 08/30/20 05:26 05:26 09:08 WBC 9.0 RBC 3.75 L Hgb 12.4 L Hct 36.1 L MCV 96 MCH 33.0 MCHC 34.3 RDW 14.7 H Plt Count 77 L Retic Count (auto) 0.69 Sodium 135.0 L Potassium 4.7 Chloride 106 Carbon Dioxide 22 Anion Gap 7 BUN 23 H Creatinine 1.36 H Est GFR ( Amer) > 60 Glucose 146 H Calcium 8.7 Iron TIBC % Saturation Ferritin Total Bilirubin 0.8 AST 22 Alkaline Phosphatase 51 Total Protein 5.5 L Albumin 3.0 L Vitamin B12 Folate 08/30/20 09:08 WBC RBC Hgb Hct MCV MCH MCHC RDW Plt Count Retic Count (auto) Sodium Potassium Chloride Carbon Dioxide Anion Gap BUN Creatinine Est GFR ( Amer) Glucose Calcium Iron 54.7 TIBC 283 % Saturation 19 Ferritin 113.00 Total Bilirubin AST Alkaline Phosphatase Total Protein Albumin Vitamin B12 310.0 Folate 6.70 08/28/20 03:43 Clean Catch Midstream Urine Culture - Final Escherichia Coli 08/28/20 08/28/20 01:44 01:44 Creatine Kinase 59 CK-MB (CK-2) 0.43 Troponin I < 0.012 NT-Pro-B Natriuret Pep 3630 H Impressions: Chest CT 08/28/20 00:00 IMPRESSION: 1. Mild emphysematous changes on the right. No acute cardiopulmonary findings. 2. 27.6 mm right adrenal mass. Consider MRI with adrenal protocol. Chest X-Ray 08/28/20 01:56 IMPRESSION: 1. Moderate hazy opacity of the right lower hemithorax/right cardiophrenic angle may indicate pneumonia/atelectasis, effusion, and/or cardiophrenic fat. Recommend CR/CT surveillance including at 7-12 weeks following initiation of any clinically warranted therapy. 2. Mild cardiac enlargement. Renal Ultrasound 08/29/20 13:41 IMPRESSION: There is no evidence of hydronephrosis. There is a slightly hypoechoic area within the urinary bladder which may represent portions of the prostate gland, less likely a mass or hemorrhage. This can be followed with subsequent ultrasound imaging. Assessment and Plan - Diagnosis (1) Acute respiratory failure with hypoxia Is this a current diagnosis for this admission?: Yes Plan: Resolved. SPO2 WNL on RA. WBC WNL. Afebrile. Patient presented with dyspnea on exertion 3 to 4 days at admission. Likely community-acquired pneumonia including Streptococcus pneumonia. Denies any history of known history of COPD or heart failure Chest x-ray shows moderate hazy opacity on the right lower lobe COVID-19 s erology negative. Day 3 IV antibiotics. Day 3 IV levofloxacin. Continue empiric IV antibiotics, DuoNeb, as needed BiPAP, supplemental oxygen, follow-up sputum and blood culture. (2) Acute kidney injury Is this a current diagnosis for this admission?: Yes Plan: Resolved. Creatinine at baseline. Presented with BUN/creatinine was 35/1.9 Likely prerenal from poor oral intake Continue cautious volume resuscitation guided by volume status. Monitor electrolytes and volume status, replace electrolytes as needed. Avoid nephrot oxic meds. (3) Diabetes mellitus Qualifiers: Diabetes mellitus type: type 2 Is this a current diagnosis for this admission?: Yes Plan: Patient noted to be hypoglycemic. Hypoglycemia improving. Patient endorsing low appetite. Home medications are pioglitazone and glipizide. Hemoglobin A1c 6.0%. Not sure if patient's hypoglycemia was induced by oral antihypoglycemics in the setting of S[place]IA. Hold oral hypoglycemic. Accu-Chek, hypoglycemia protocol, sliding scale insulin. (4) Hypertension Is this a current diagnosis for this admission?: Yes Plan: Presented with soft BPs. Asymptomatic. Review of home medication shows that patient is on multiple antihypertensive medications including amlodipine, lisinopril, hydrochlorothiazide and metoprolol likely contributing to low blood pressure present on presentation. Monitor vitals. Hold antihypertensives, resume once appropriate. Outpatient PCP follow-up. (5) Right lower lobe pneumonia Is this a current diagnosis for this admission?: Yes Plan: Plan as per #1. (6) Sepsis Is this a current diagnosis for this admission?: Yes Plan: Resolved. As per admissions note patient met sepsis criteria Likely source: UTI and community-acquired pneumonia. (7) Suspected COVID-19 virus infection Is this a current diagnosis for this admission?: Yes Plan: COVID-19 serology negative. (8) UTI (urinary tract infection) Qualifiers: Urinary tract infection type: site unspecified Hematuria presence: with hem aturia Qualified Code(s): N39.0 - Urinary tract infection, site not specified; R31.9 - Hematuria, unspecified Is this a current diagnosis for this admission?: Yes Plan: Likely due to gram-negative rods including E. coli. Presented with hematuria. Denies any history of recurrent UTI, urogenital instrumentation, neph rolithiasis. (9) Hematuria Qualifiers: Hematuria type: unspecified type Qualified Code(s): R31.9 - Hematuria, unspecified Is this a current diagnosis for this admission?: Yes Plan: Resolved. Patient reported seeing blood clots while urinating. UA positive for moderate hematuria. Repeat UA moderate resolution. Denies any history of nephrolithiasis, trauma or any urogenital malignancy. Likely due to acute UTI. Treat underlying UTI. Bladder kidney ultrasound negative for any hydronephrosis, bladder mass. Follow-up ultrasound is recommended. (10) Thrombocytopenia Is this a current diagnosis for this admission?: Yes Plan: Stable. No sign of acute bleeding. Patient presented with hematuria and also complaining of easy bruising of upper extremities. Denies any history of malignancy, rashes, nosebleed, hematemesis, hemoptysis, melena or hematochezia. Denies any exposure to heparin weights. As per oncology note likely low-grade DIC due to underlying infection. 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 Oncology on board, outpatient follow-up recommended. - Time Time Spent with patient: 25-34 minutes Medications reviewed and adjusted accordingly: Yes Anticipated Discharge Disposition: Home, Self Care Anticipated Discharge Timeframe: within 24 hours
[2020-08-31] MEDS: INSULIN LISPRO 100 UNIT/ML 3 ML VIAL SUBCUT SCH ×2 (00:37→06:20)
[2020-08-31 05:08] LABS: ABSOLUTE LYMPHOCYTES (AUTO) 0.6 10^3/uL (0.5-4.7); ABSOLUTE MONOCYTES (AUTO) 0.7 10^3/uL (0.1-1.4); ABSOLUTE NEUT (AUTO) 4.4 10^3/uL (1.7-8.2); BASOPHILS % (AUTO) 0.3 % (0-2); EOSINOPHILS % (AUTO) 0.5 % (0-6); HEMATOCRIT 34.6 % (37.9-51.0); HEMOGLOBIN 11.8 g/dL (13.5-17.0); MEAN CORPUSCULAR HEMOGLOBIN 32.6 pg (27.0-33.4); MEAN CORPUSCULAR HGB CONC 33.9 g/dL (32.0-36.0); MEAN CORPUSCULAR VOLUME 96 fl (80-97); MONOCYTES % (AUTO) 12.8 % (3-13); RED CELL DISTRIBUTION WIDTH 13.8 % (11.5-14.0); SEGMENTED NEUTROPHILS % (AUTO) 75.4 % (42-78); TOTAL CELLS COUNTED % (AUTO) 100 %; WHITE BLOOD COUNT 5.8 10^3/uL (4.0-10.5)
[2020-08-31 05:21] LABS: ANION GAP 7 (5-19); BLOOD UREA NITROGEN 18 mg/dL (7-20); CALCIUM 8.9 mg/dL (8.4-10.2); CARBON DIOXIDE 25 mmol/L (22-30); CHLORIDE 105 mmol/L (98-107); GLUCOSE 138 mg/dL (75-110); POTASSIUM 4.4 mmol/L (3.6-5.0)
[2020-08-31 05:39] LABS: PLATELET COUNT 87 10^3/uL (150-450)
--- NOTE | 2020-08-31 08:00 | PDOC PROGRESS REPORT ---
Subjective Date:: 08/31/20 Subjective:: No acute events overnight, patient seems to be feeling better this morning. Reason For Visit: SEPSIS,URINARY TRACT INFECTION Physical Exam Vital Signs: Temp Pulse Resp BP Pulse Ox 98.6 F 113 H 17 110/60 96 08/30/20 23:59 08/30/20 23:59 08/30/20 23:59 08/30/20 23:59 08/30/20 23:59 Intake & Output 08/30/20 08/31/20 09/01/20 06:59 06:59 06:59 Intake Total 2067 1268 Output Total 1175 865 Balance 892 403 Weight 87.4 kg 87.4 kg General appearance: PRESENT: no acute distress, well-developed, well-nourished Head exam: PRESENT: atraumatic, normocephalic Eye exam: PRESENT: conjunctiva pink, EOMI, PERRLA. ABSENT: scleral icterus Ear exam: PRESENT: normal external ear exam Mouth exam: PRESENT: moist, tongue midline Neck exam: ABSENT: carotid bruit, JVD, lymphadenopathy, thyromegaly Respiratory exam: PRESENT: clear to auscultation kehinde. ABSENT: rales, rhonchi, wheezes Cardiovascular exam: PRESENT: RRR. ABSENT: diastolic murmur, rubs, systolic murmur Pulses: PRESENT: normal dorsalis pedis pul Vascular exam: PRESENT: normal capillary refill GI/Abdominal exam: PRESENT: normal bowel sounds, soft. ABSENT: distended, guarding, mass, organolmegaly, rebound, tenderness Rectal exam: PRESENT: deferred Extremities exam: PRESENT: full ROM. ABSENT: calf tenderness, clubbing, pedal edema Neurological exam: PRESENT: alert, awake, oriented to person, oriented to place, oriented to time, oriented to situation, CN II-XII grossly intact. ABSENT: motor sensory deficit Psychiatric exam: PRESENT: appropriate affect, normal mood. ABSENT: homicidal ideation, suicidal ideation Skin exam: PRESENT: dry, intact, warm. ABSENT: cyanosis, rash Results Laboratory Results: 08/31/20 04:36 08/31/20 04:36 08/30/20 08/30/20 08/31/20 09:08 09:08 04:36 WBC 5.8 RBC 3.60 L Hgb 11.8 L Hct 34.6 L MCV 96 MCH 32.6 MCHC 33.9 RDW 13.8 Plt Count 87 L Seg Neutrophils % 75.4 Retic Count (auto) 0.69 Sodium Potassium Chloride Carbon Dioxide Anion Gap BUN Creatinine Est GFR ( Amer) Glucose Calcium Iron 54.7 TIBC 283 % Saturation 19 Ferritin 113.00 Vitamin B12 310.0 Folate 6.70 08/31/20 04:36 WBC RBC Hgb Hct MCV MCH MCHC RDW Plt Count Seg Neutrophils % Retic Count (auto) Sodium 136.5 L Potassium 4.4 Chloride 105 Carbon Dioxide 25 Anion Gap 7 BUN 18 Creatinine 1.24 Est GFR ( Amer) > 60 Glucose 138 H Calcium 8.9 Iron TIBC % Saturation Ferritin Vitamin B12 Folate 08/28/20 03:43 Clean Catch Midstream Urine Culture - Final Escherichia Coli 08/28/20 08/28/20 01:44 01:44 Creatine Kinase 59 CK-MB (CK-2) 0.43 Troponin I < 0.012 NT-Pro-B Natriuret Pep 3630 H Impressions: Chest CT 08/28/20 00:00 IMPRESSION: 1. Mild emphysematous changes on the right. No acute cardiopulmonary findings. 2. 27.6 mm right adrenal mass. Consider MRI with adrenal protocol. Chest X-Ray 08/28/20 01:56 IMPRESSION: 1. Moderate hazy opacity of the right lower hemithorax/right cardiophrenic angle may indicate pneumonia/atelectasis, effusion, and/or cardiophrenic fat. Recommend CR/CT surveillance including at 7-12 weeks following initiation of any clinically warranted therapy. 2. Mild cardiac enlargement. Renal Ultrasound 08/29/20 13:41 IMPRESSION: There is no evidence of hydronephrosis. There is a slightly hypoechoic area within the urinary bladder which may represent portions of the prostate gland, less likely a mass or hemorrhage. This can be followed with subsequent ultrasound imaging. 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 He will see us in a few weeks time and we will plan for repeat imaging to further delineate. (2) Thrombocytopenia Is this a current diagnosis for this admission?: Yes Plan: Platelet count improving, I believe it is probably going to be liver related. Hopefully should improve to greater than 100,000 in the next few weeks. We will recheck as an outpatient. (3) Anemia Qualifiers: Anemia type: unspecified type Qualified Code(s): D64.9 - Anemia, u nspecified Is this a current diagnosis for this admission?: Yes Plan: Ferritin greater than 100, will follow as an outpatient as well. Probable anemia of chronic disease. - Time Time Spent with patient: 35 or more minutes - Inpatient Certification Based on my medical assessment, after consideration of the patient's comorbidities, presenting symptoms, or acuity I expect that the services needed warrant INPATIENT care.: Yes I certify that my determination is in accordance with my understanding of Medicare's requirements for reasonable and necessary INPATIENT services [42 CFR 412.3e].: Yes Medical Necessity: Risk of Complication if Not Cared For in Hospital
[2020-08-31 08:47] LABS: APPEARANCE,URINE CLEAR; BILIRUBIN,URINE NEGATIVE (NEGATIVE); COLOR,URINE STRAW; GLUCOSE, URINE 50 mg/dL (NEGATIVE); KETONES,URINE NEGATIVE (NEGATIVE); PROTEIN,URINE NEGATIVE (NEGATIVE); URINE SPECIFIC GRAVITY 1.009; UROBILINOGEN,URINE NEGATIVE mg/dL (<2.0)
[2020-08-31] MEDS: AMLODIPINE BESYLATE 5 MG TABLET PO SCH (09:08)
[2020-08-31] MEDS: FLUTICASONE NASAL SPRAY 50 MCG/SPRY 120 SPRAY/16 GM NAREB SCH (09:09)
[2020-08-31] MEDS: FAMOTIDINE 20 MG TABLET PO SCH (09:09)
[2020-08-31] MEDS: LISINOPRIL 5 MG TABLET PO SCH (09:10)
[2020-08-31 10:37] VITALS: BP 110/60
--- NOTE | 2020-09-04 17:12 | PDOC DISCHARGE SUMMARY ---
Impression - Admit/DC Date/PCP Admission Date/Primary Care Provider: 08/28/20 14:24 MARIA E IBARRA JR, MD Discharge Date: 08/31/20 - Discharge Diagnosis (1) Acute respiratory failure with hypoxia Is this a current diagnosis for this admission?: Yes (2) Acute kidney injury Is this a current diagnosis for this admission?: Yes (3) Diabetes mellitus Is this a current diagnosis for this admission?: Yes (4) Hypertension Is this a current diagnosis for this admission?: Yes (5) Right lower lobe pneumonia Is this a current diagnosis for this admission?: Yes (6) Sepsis Is this a current diagnosis for this admission?: Yes (7) Suspected COVID-19 virus infection Is this a current diagnosis for this admission?: Yes (8) UTI (urinary tract infection) Is this a current diagnosis for this admission?: Yes (9) Hematuria Is this a current diagnosis for this admission?: Yes (10) Thrombocytopenia Is this a current diagnosis for this admission?: Yes (11) Adrenal mass 1 cm to 4 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 and to bring photo id, list of medications, bottles of medications and to wear a mask.) Prescriptions: Levofloxacin [Levaquin 500 mg Tablet] 500 mg PO DAILY 3 Days #3 tablet Home Medications: Amlodipine Besylate [Norvasc 5 mg Tablet] 5 mg PO DAILY 08/28/20 Fluticasone Propionate [Flonase Nasal Manson 50 Mcg/Manson 16 gm] 2 spray NAREB DAILYP PRN 08/28/20 Lisinopril [Prinivil 5 mg Tablet] 5 mg PO DAILY 08/28/20 Levofloxacin [Levaquin 500 mg Tablet] 500 mg PO DAILY 3 Days #3 tablet 08/31/20 History of Present Illiness History of Present Illness: As per admitting physician's note MANUEL QUINN is a 75 year old male with a history of hypertension and diabetes who presents to the ER stating that he has been feeling bad for the past 1 week. He states that he has been having generalized weakness, and has been easily fatigued. He also reports that he has been having hematuria, increased frequency of urination and dysuria. And also endorses shortness of breath with exertion and mild sporadic cough which is nonproductive. He has been having rhinorrhea but denies history of fever, chills, chest pain, dizziness, nausea, vomiting or diarrhea. Has no orthopnea, PND or leg swelling. He also denied any recent sick contact history. Hospital Course Hospital Course: (1) Acute respiratory failure with hypoxia Resolved. SPO2 WNL on RA. WBC WNL. Afebrile. Patient presented with dyspnea on exertion 3 to 4 days at admission. Likely community-acquired pneumonia including Streptococcus pneumonia. Denied any history of known history of COPD or heart failure Chest x-ray shows moderate hazy opacity on the right lower lobe COVID-19 serology negative. Received 4 days of IV antibiotics. Received 4 days of IV levofloxacin. Was a started on continue empiric IV antibiotics, DuoNeb, as needed BiPAP, supplemental oxygen. Discharged on levofloxacin for another 3 days. (2) Acute kidney injury Resolved. Creatinine at baseline. Presented with BUN/creatinine was 35/1.9 Likely prerenal from poor oral intake Was a started on cautious volume resuscitation guided by volume status. (3) Diabetes mellitus Patient noted to be hypoglycemic. Hypoglycemia improving. Patient endorsing low appetite. Home medications are pioglitazone and glipizide. Hemoglobin A1c 6.0%. Not sure if patient's hypoglycemia was induced by oral antihypoglycemics in the setting of SASKIA. Hold oral hypoglycemic. Accu-Chek, hypoglycemia protocol, sliding scale insulin. Patient was advised to hold his antidiabetic's until reevaluated by his PCP. I also contacted his and informed him about his hypoglycemia while inpatient but need to hold his antidiabetics until seen by PCP. Patient and family was advised on checking his blood sugar frequently. Patient and family voiced understanding. (4) Hypertension Presented with soft BPs. Asymptomatic. Review of home medication shows that patient is on multiple antihypertensive medications including amlodipine, lisinopril, hydrochlorothiazide and metoprolol likely contributing to low blood pressure present on presentation. Monitor vitals. Hold antihypertensives, resume once appropriate. Outpatient PCP follow-up. Occasions will reconsult. Asked to resume home meds upon discharge. Advised to follow-up with PCP for readjustment of antihypertensives. (5) Right lower lobe pneumonia Plan as per #1. (6) Sepsis Resolved. As per admissions note patient met sepsis criteria Likely source: UTI and community-acquired pneumonia. (7) Suspected COVID-19 virus infection COVID-19 serology negative. (8) UTI (urinary tract infection) Due to E. coli pansensitive. Presented with hematuria. Denies any history of recurrent UTI, urogenital instrumentation, nephrolithiasis. Received a complete course of antibiotics. (9) Hematuria Resolved. Patient reported seeing blood clots while urinating. UA positive for moderate hematuria. Repeat UA moderate resolution. Denies any history of nephrolithiasis, trauma or any urogenital malignancy. Likely due to acute UTI. Bladder kidney ultrasound negative for any hydronephrosis, bladder mass. Follow-up ultrasound is recommended. Patient family advised to follow-up with PCP for another bladder ultrasound to rule out any malignancy. (10) Thrombocytopenia Stable. No sign of acute bleeding. Patient presented with hematuria and also complaining of easy bruising of upper extremities. Denies any history of malignancy, rashes, nosebleed, hematemesis, hemoptysis, melena or hematochezia. Denies any exposure to heparin weights. As per oncology note likely low-grade DIC due to underlying infection. Patient was advised to follow-up with PCP and oncology as outpatient. (11) Adrenal mass 1 cm to 4 cm in diameter Incidental left adrenal mass chest CT. Oncology on board, outpatient follow-up recommended. Collagen was consulted. Recommendation was to follow-up as outpatient with oncology. Physical Exam Vital Signs: Temp Pulse Resp BP Pulse Ox 98.5 F 108 H 16 110/60 95 08/31/20 10:44 08/31/20 10:44 08/31/20 10:44 08/31/20 10:44 08/31/20 10:44 General appearance: PRESENT: no acute distress, obese, well-developed, well- nourished Head exam: PRESENT: atraumatic, normocephalic Neck exam: ABSENT: carotid bruit, JVD, lymphadenopathy, thyromegaly Respiratory exam: PRESENT: clear to auscultation kehinde. ABSENT: rales, rhonchi, wheezes Cardiovascular exam: PRESENT: RRR. ABSENT: diastolic murmur, rubs, systolic murmur GI/Abdominal exam: PRESENT: normal bowel sounds, soft. ABSENT: distended, guarding, mass, organolmegaly, rebound, tenderness Extremities exam: PRESENT: full ROM. ABSENT: calf tenderness, clubbing, pedal edema Neurological exam: PRESENT: alert, awake, oriented to person, oriented to place, oriented to time, oriented to situation, CN II-XII grossly intact. ABSENT: motor sensory deficit Results Laboratory Results: WBC 5.8 10^3/uL (4.0-10.5) 08/31/20 04:36 RBC 3.60 10^6/uL (4.35-5.55) L 08/31/20 04:36 Hgb 11.8 g/dL (13.5-17.0) L 08/31/20 04:36 Hct 34.6 % (37.9-51.0) L 08/31/20 04:36 MCV 96 fl (80-97) 08/31/20 04:36 MCH 32.6 pg (27.0-33.4) 08/31/20 04:36 MCHC 33.9 g/dL (32.0-36.0) 08/31/20 04:36 RDW 13.8 % (11.5-14.0) 08/31/20 04:36 Plt Count 87 10^3/uL (150-450) L 08/31/20 04:36 Lymph % (Auto) 11.0 % (13-45) L 08/31/20 04:36 Parke % (Auto) 12.8 % (3-13) 08/31/20 04:36 Eos % (Auto) 0.5 % (0-6) 08/31/20 04:36 Baso % (Auto) 0.3 % (0-2) 08/31/20 04:36 Reticulocyte # 0.026 10^6/uL (0.028-0.122) L 08/30/20 09:08 Absolute Neuts (auto) 4.4 10^3/uL (1.7-8.2) 08/31/20 04:36 Absolute Lymphs (auto) 0.6 10^3/uL (0.5-4.7) 08/31/20 04:36 Absolute Monos (auto) 0.7 10^3/uL (0.1-1.4) 08/31/20 04:36 Absolute Eos (auto) 0.0 10^3/uL (0.0-0.6) 08/31/20 04:36 Absolute Basos (auto) 0.0 10^3/uL (0.0-0.2) 08/31/20 04:36 Seg Neutrophils % 75.4 % (42-78) 08/31/20 04:36 Retic Count (auto) 0.69 % (0.66-2.85) 08/30/20 09:08 PT 13.3 SEC (11.4-15.4) 08/30/20 09:08 INR 0.99 08/30/20 09:08 Fibrinogen 643 mg/dL (209-497) H 08/30/20 09:08 VBG pH 7.37 (7.30-7.42) 08/28/20 04:00 VBG pCO2 35.4 mmHg (35-63) 08/28/20 04:00 VBG HCO3 19.9 mmol/L (20-32) L 08/28/20 04:00 VBG Base Excess -4.7 mmol/L 08/28/20 04:00 Sodium 136.5 mmol/L (137-145) L 08/31/20 04:36 Potassium 4.4 mmol/L (3.6-5.0) 08/31/20 04:36 Chloride 105 mmol/L (98-107) 08/31/20 04:36 Carbon Dioxide 25 mmol/L (22-30) 08/31/20 04:36 Anion Gap 7 (5-19) 08/31/20 04:36 BUN 18 mg/dL (7-20) 08/31/20 04:36 Creatinine 1.24 mg/dL (0.52-1.25) 08/31/20 04:36 Est GFR ( Amer) > 60 (>60) 08/31/20 04:36 Est GFR (MDRD) Non-Af 57 (>60) L 08/31/20 04:36 Glucose 138 mg/dL (75-110) H 08/31/20 04:36 POC Glucose 140 mg/dL (70-110) H 08/31/20 06:06 Hemoglobin A1c % 6.0 % (4.7-6.0) 08/29/20 04:56 Lactic Acid 1.2 mmol/L (0.7-2.1) 08/28/20 04:00 Calcium 8.9 mg/dL (8.4-10.2) 08/31/20 04:36 Iron 54.7 ug/dL (49-181) 08/30/20 09:08 TIBC 283 ug/dL (250-450) 08/30/20 09:08 % Saturation 19 % 08/30/20 09:08 Ferritin 113.00 ng/mL (17.9-464.0) 08/30/20 09:08 Total Bilirubin 0.8 mg/dL (0.2-1.3) 08/30/20 05:26 Direct Bilirubin 0.1 mg/dL (0.0-0.4) 08/30/20 05:26 Neonat Total Bilirubin Not Reportable 08/30/20 05:26 Neonat Direct Bilirubin Not Reportable 08/30/20 05:26 Neonat Indirect Bili Not Reportable 08/30/20 05:26 AST 22 U/L (17-59) 08/30/20 05:26 ALT 15 U/L (<50) 08/30/20 05:26 Alkaline Phosphatase 51 U/L (38-126) 08/30/20 05:26 Creatine Kinase 59 U/L (55-170) 08/28/20 01:44 CK-MB (CK-2) 0.43 ng/mL (<4.55) 08/28/20 01:44 Troponin I < 0.012 ng/mL 08/28/20 01:44 NT-Pro-B Natriuret Pep 3630 pg/mL (<125) H 08/28/20 01:44 Total Protein 5.5 g/dL (6.3-8.2) L 08/30/20 05:26 Albumin 3.0 g/dL (3.5-5.0) L 08/30/20 05:26 Vitamin B12 310.0 pg/mL (239-931) 08/30/20 09:08 Folate 6.70 ng/mL (>2.76) 08/30/20 09:08 Urine Color STRAW 08/31/20 08:15 Urine Appearance CLEAR 08/31/20 08:15 Urine pH 6.0 (5.0-9.0) 08/31/20 08:15 Ur Specific [place] 1.009 08/31/20 08:15 Urine Protein NEGATIVE mg/dL (NEGATIVE) 08/31/20 08:15 Urine Glucose (UA) 50 mg/dL (NEGATIVE) H 08/31/20 08:15 Urine Ketones NEGATIVE mg/dL (NEGATIVE) 08/31/20 08:15 Urine Blood SMALL (NEGATIVE) H 08/31/20 08:15 Urine Nitrite POSITIVE (NEGATIVE) H 08/28/20 03:43 Urine Nitrite (Reflex) NEGATIVE (NEGATIVE) 08/31/20 08:15 Urine Bilirubin NEGATIVE (NEGATIVE) 08/31/20 08:15 Urine Urobilinogen NEGATIVE mg/dL (<2.0) 08/31/20 08:15 Ur Leukocyte Esterase LARGE (NEGATIVE) H 08/28/20 03:43 Leukocyte Esterase Rfl TRACE (NEGATIVE) H 08/31/20 08:15 Urine WBC (Auto) >182 /HPF 08/28/20 03:43 Urine RBC (Auto) 1 /HPF 08/31/20 08:15 Urine WBC (Reflex) 6 /HPF 08/31/20 08:15 Urine WBC Clumps MANY /HPF 08/28/20 03:43 Squamous Epi Cells Auto <1 /HPF 08/31/20 08:15 Urine Mucus (Auto) RARE /LPF 08/29/20 10:26 Urine Ascorbic Acid NEGATIVE (NEGATIVE) 08/31/20 08:15 COVID-19 Source See comment 08/28/20 05:00 COVID-19 (JOSE) Not Detected (Not Detect) 08/28/20 05:00 08/28/20 01:44 CK-MB (CK-2) 0.43 Troponin I < 0.012 NT-Pro-B Natriuret Pep 3630 H Impressions: Chest CT 08/28/20 00:00 IMPRESSION: 1. Mild emphysematous changes on the right. No acute cardiopulmonary findings. 2. 27.6 mm right adrenal mass. Consider MRI with adrenal protocol. Chest X-Ray 08/28/20 01:56 IMPRESSION: 1. Moderate hazy opacity of the right lower hemithorax/right cardiophrenic angle may indicate pneumonia/atelectasis, effusion, and/or cardiophrenic fat. Recommend CR/CT surveillance including at 7-12 weeks following initiation of any clinically warranted therapy. 2. Mild cardiac enlargement. Renal Ultrasound 08/29/20 13:41 IMPRESSION: There is no evidence of hydronephrosis. There is a slightly hypoechoic area within the urinary bladder which may represent portions of the prostate gland, less likely a mass or hemorrhage. This can be followed with subsequent ultrasound imaging. Stroke Is this a Stroke Patient?: No Acute Heart Failure Is this a Heart Failure Patient?: No
== END 2020-08-31 11:11 | disposition home health service (06) | DRG 871 ==
LOC: ER 01:36 → EH 06:13 → 3W 08:05 → OBSVTOIN 14:24 → 4N 08-29 21:33
PROVIDERS: ADMIT Student in an Organized Health Care Education/Training Program; ATTEND Internal Medicine
DX: A41.9 Sepsis, unspecified organism (principal); J96.01 Acute respiratory failure with hypoxia; J13 Pneumonia due to Streptococcus pneumoniae; N39.0 Urinary tract infection, site not specified; N17.9 Acute kidney failure, unspecified; E11.649 Type 2 diabetes mellitus with hypoglycemia without coma; E27.9 Disorder of adrenal gland, unspecified; D69.6 Thrombocytopenia, unspecified; Z20.828 Contact with and (suspected) exposure to other viral communicable diseases; I10 Essential (primary) hypertension; J44.9 Chronic obstructive pulmonary disease, unspecified; D64.9 Anemia, unspecified; B96.20 Unspecified Escherichia coli [E. coli] as the cause of diseases classified elsewhere; R31.9 Hematuria, unspecified; F10.11 Alcohol abuse, in remission; Z87.891 Personal history of nicotine dependence; Z79.899 Other long term (current) drug therapy; Z79.82 Long term (current) use of aspirin
CPT/HCPCS: 36415; 71045; 71250; 76770; 80048; 80053; 81001; 82550; 82553; 82607; 82728; 82746; 82803; 82962; 83036; 83540; 83550; 83605; 83880; 84484; 85025; 85027; 85045; 85384; 85610; 87040; 87086; 87088; 87186; 87635; 93005; 93010; 94667; 94668; 94799; 96365; 99285; C9803; G0378; J1644; J1815; J1956; J3490; J7030; J7040; J7042